=== PATIENT | male | born 1940 | race Caucasian/White ===

== ENCOUNTER 2017-03-05 13:40 | Inpatient (IN) | payer MEDICARE ==
[~2017-03-05] VITALS: Ht 175.3 cm; Wt 79.8 kg
[~2017-03-05 13:40] MED LIST: ACET500T63 PO; ACID1TAB7 PO; ASPI-621 PO; ATOR10TA9 PO; CEFD300C37 PO; CYCL-259 PO; DOCU-131 PO; FAMO20TA7 PO; LISI-167 PO; LISI-170 PO
[2017-03-05 14:54] LABS: BASOPHILS # (AUTO) 0.02 x10^3/uL (0-0.1); BASOPHILS % (AUTO) 0 % (0-1); EOSINOPHILS # (AUTO) 0.07 x10^3/uL (0-0.4); EOSINOPHILS % (AUTO) 1 % (1-7); LYMPHOCYTES % (AUTO) 17 % (22-44); MD NO; MEAN CORPUSCULAR HEMOGLOBIN 30.7 pg (27.5-34.5); MEAN CORPUSCULAR HGB CONC 33.2 g/dL (33.2-36.2); MEAN CORPUSCULAR VOLUME 92.4 fL (81-97); MEAN PLATELET VOLUME 8.8 fL (7.4-10.4); MONOCYTES # (AUTO) 0.42 x10^3/uL (0.2-0.8); MONOCYTES % (AUTO) 7 % (2-9); NEUTROPHILS # (AUTO) 4.49 x10^3/uL (1.8-6.8); NEUTROPHILS % (AUTO) 75 % (42-75); PLATELET COUNT 194 x10^3/uL (130-400); RED CELL DISTRIBUTION WIDTH 14.1 % (9.4-14.8)
[2017-03-05 14:57] LABS: ALBUMIN 3.6 g/dL (3.4-5.0); ANION GAP 6 mmol/L (5-15); CALCIUM 8.7 mg/dL (8.5-10.1); CHLORIDE 108 mmol/L (98-107); CREATININE 0.97 mg/dL (0.7-1.3)
[2017-03-05 15:02] LABS: TROPONIN I < 0.015 ng/mL (0.000-0.045)
[2017-03-05 15:39] LABS: MICROSCOPIC NOT IND
[2017-03-05 16:21] LABS: CULTURE INDICATED? NO
[2017-03-05] MEDS ORDERED: LEVETIRACETAM 100 MG/ML, 5ML IV ONE (16:30)
[2017-03-05] MEDS ORDERED: DEXAMETHASONE 4 MG/ML, 1ML IVPush SCH (16:30)
[2017-03-05] MEDS ORDERED: GADOBUTROL 7.5 MMOL/7.5 ML PFS ONE (16:53)
[2017-03-05] MEDS ORDERED: DEXAMETHASONE 4 MG/ML, 1ML ONE (16:53)
[2017-03-05] MEDS ORDERED: PLEASE ENTER HEIGHT AND WEIGHT MC SCH (17:09)
[2017-03-05] MEDS ORDERED: BISACODYL 10 MG SUPP PR PRN (18:00)
[2017-03-05] MEDS ORDERED: DOCUSATE 100 MG CAPSULE PO PRN (18:00)
[2017-03-05] MEDS ORDERED: ACETAMINOPHEN 325 MG TABLET PO PRN (18:00)
[2017-03-05] MEDS ORDERED: morphine SULFATE 10 MG/ML, 1ML IVPush PRN (18:00)
[2017-03-05] MEDS ORDERED: LEVETIRACETAM 500 MG in SODIUM CHLORIDE 0.9% 100 ML IV ONE (18:00)
[2017-03-05] MEDS ORDERED: LORazepam 0.5MG TABLET PO PRN (18:00)
[2017-03-05] MEDS ORDERED: OMNIPAQUE 350 MG/ML, 100ML BOTTLE ONE (18:00)
[2017-03-05] MEDS ORDERED: ONDANSETRON 2MG/ML, 2ML IVPush PRN (18:00)
[2017-03-05] MEDS ORDERED: HYDROcodone/APAP 5/325 TABLET PO PRN (18:00)
[2017-03-05] MEDS: DEXAMETHASONE 4 MG/ML, 1ML IVPush SCH (18:28)
[2017-03-05 19:23] VITALS: BP 162/82
[2017-03-05] MEDS: ATORVASTATIN 10 MG TABLET PO SCH (21:03)
[2017-03-05] MEDS: FAMOTIDINE 20 MG TABLET PO SCH (21:03)
[2017-03-05] MEDS: SODIUM CHLORIDE FLUSH 10ML SYR IVF SCH (21:04)
[2017-03-06] MEDS: DEXAMETHASONE 4 MG/ML, 1ML IVPush SCH ×4 (00:12→18:13)
[2017-03-06] MEDS: LEVETIRACETAM 500 MG TABLET PO SCH ×3 (00:13→21:12)
[2017-03-06] MEDS: TEMAZEPAM 15 MG CAPSULE PO PRN ×2 (00:26→21:12)
[2017-03-06 01:38] VITALS: BP 125/63
[2017-03-06 04:42] LABS: BASOPHILS # (AUTO) 0.01 x10^3/uL (0-0.1); BASOPHILS % (AUTO) 0 % (0-1); EOSINOPHILS % (AUTO) 0 % (1-7); LYMPHOCYTES # (AUTO) 0.49 x10^3/uL (1-3.4); LYMPHOCYTES % (AUTO) 8 % (22-44); MD NO; MEAN CORPUSCULAR HGB CONC 33.8 g/dL (33.2-36.2); MEAN CORPUSCULAR VOLUME 91.8 fL (81-97); MONOCYTES # (AUTO) 0.07 x10^3/uL (0.2-0.8); MONOCYTES % (AUTO) 1 % (2-9); NEUTROPHILS # (AUTO) 5.97 x10^3/uL (1.8-6.8); NEUTROPHILS % (AUTO) 91 % (42-75); PLATELET COUNT 183 x10^3/uL (130-400); RED BLOOD COUNT 4.69 x10^6/uL (4.38-5.82); RED CELL DISTRIBUTION WIDTH 13.8 % (9.4-14.8)
[2017-03-06 04:47] LABS: ALANINE AMINOTRANSFERASE 22 U/L (12-78); ALBUMIN 3.2 g/dL (3.4-5.0); ANION GAP 8 mmol/L (5-15); CALCIUM 8.5 mg/dL (8.5-10.1); CHLORIDE 110 mmol/L (98-107); CREATININE 0.92 mg/dL (0.7-1.3)
[2017-03-06 04:50] LABS: ALKALINE PHOSPHATASE 68 U/L (45-117); BILIRUBIN,TOTAL 0.6 mg/dL (0.2-1.0); TOTAL PROTEIN 7.1 g/dL (6.4-8.2)
[2017-03-06 07:50] VITALS: BP 136/77
[2017-03-06] MEDS: FAMOTIDINE 20 MG TABLET PO SCH ×2 (09:29→21:12)
[2017-03-06] MEDS: SODIUM CHLORIDE FLUSH 10ML SYR IVF SCH (09:29)
[2017-03-06 09:32] LABS: INTERNATIONAL NORMALIZED RATIO 0.99 (0.93-1.1); PROTHROMBIN TIME 10.3 Seconds (9.6-11.5)
[2017-03-06 13:28] VITALS: BP 120/65
[2017-03-06 20:39] VITALS: BP 144/76
[2017-03-06] MEDS: ATORVASTATIN 10 MG TABLET PO SCH (21:12)
[2017-03-07] MEDS: SODIUM CHLORIDE FLUSH 10ML SYR IVF SCH ×2 (00:05→07:48)
[2017-03-07] MEDS: DEXAMETHASONE 4 MG/ML, 1ML IVPush SCH ×2 (00:05→05:28)
[2017-03-07 02:31] VITALS: BP 138/71
[2017-03-07] MEDS: FAMOTIDINE 20 MG TABLET PO SCH (07:48)
[2017-03-07] MEDS: LEVETIRACETAM 500 MG TABLET PO SCH (07:48)
[2017-03-07 07:49] VITALS: BP 154/83
[2017-03-07] MEDS ORDERED: FAMO20TA7 PO (10:57)
[2017-03-07] MEDS ORDERED: LEVE500T53 PO (10:57)
[2017-03-07] MEDS ORDERED: DEXA4TAB PO (10:58)
[2017-03-07] MEDS ORDERED: ACET325T14 PO (11:00)
[2017-03-07] MEDS ORDERED: DOCU-131 PO (11:00)
[2017-03-07] MEDS ORDERED: LISI-167 PO (11:08)
[2017-03-07] MEDS ORDERED: LISINOPRIL 10 MG TABLET PO SCH (11:30)
[2017-03-07] MEDS ORDERED: DEXAMETHASONE 4 MG TABLET PO SCH (15:00)
== END 2017-03-07 12:11 | disposition home or self-care (01) | DRG 97 ==
LOC: ED 16:02 → EDIP 16:03 → ED 16:28 → 3NW 17:49 → DCLOUNGE 03-07 12:02
PROVIDERS: ADMIT Hospitalist; ATTEND Hospitalist
DX: B58.2 Toxoplasma meningoencephalitis (principal); G93.6 Cerebral edema; E44.0 Moderate protein-calorie malnutrition; D49.6 Neoplasm of unspecified behavior of brain; C61 Malignant neoplasm of prostate; D17.30 Benign lipomatous neoplasm of skin and subcutaneous tissue of unspecified sites; Z68.26 Body mass index [BMI] 26.0-26.9, adult; E78.5 Hyperlipidemia, unspecified; M51.37 Other intervertebral disc degeneration, lumbosacral region; I10 Essential (primary) hypertension; Z79.899 Other long term (current) drug therapy; Z85.46 Personal history of malignant neoplasm of prostate; Z87.440 Personal history of urinary (tract) infections; Z87.442 Personal history of urinary calculi; Z87.891 Personal history of nicotine dependence; Z92.3 Personal history of irradiation
CPT/HCPCS: 36415; 70450; 70553; 71046; 71260; 74177; 80048; 80053; 81003; 82040; 84484; 85025; 85610; 93005; 99291; A9585; J1100; J1953; Q9967

== ENCOUNTER 2017-03-14 07:23 | Inpatient (IN) | payer MEDICARE ==
[~2017-03-14] VITALS: Ht 175.3 cm; Wt 80.8 kg
[~2017-03-14 07:23] MED LIST changes: -ACETAMINOPHEN 650 MG/20.3 ML UDC ONE; +BACITRACIN 50,000 UNIT ONE; +BUPIVACAINE/PF 0.5% ONE; -DEXA2TAB PO; -DOCU100T3 PO; +EPINEPHRINE 1 MG/ML, 1ML ONE; -FAMO-79 PO; -HYDR-3240 PO; -LABETALOL 5MG/ML, 20ML ONE; +MANNITOL PMX 20% 500 ML ONE; -OXYcodone 5 MG/5 ML ORAL.SOL UDC ONE; +THROMBIN 5,000 UNIT VIAL TP ONE; -hydrALAzine 20 MG/ML, 1ML ONE
[2017-03-14] MEDS ORDERED: LACTATED RINGERS 1,000 ML IV SCH (07:51)
[2017-03-14] MEDS ORDERED: REMIFENTANIL 2 MG ONE (08:36)
[2017-03-14] MEDS ORDERED: MIDAZOLAM 1 MG/ML, 2ML ONE (08:36)
[2017-03-14] MEDS ORDERED: FENTANYL PF 250 MCG/5ML ONE (08:36)
[2017-03-14] MEDS ORDERED: PROPOFOL 50 ML ONE (08:37)
[2017-03-14] MEDS ORDERED: PROPOFOL 10 MG/ML, 20ML ONE (09:33)
[2017-03-14] MEDS ORDERED: ROCURONIUM 10 MG/ML,10ML ONE (09:33)
[2017-03-14] MEDS ORDERED: DEXAMETHASONE 4 MG/ML, 1ML ONE (09:33)
[2017-03-14] MEDS ORDERED: SUCCINYLCHOLINE 20 MG/ML, 10ML ONE (09:33)
[2017-03-14] MEDS ORDERED: ONDANSETRON 2MG/ML, 2ML ONE (09:33)
[2017-03-14] MEDS ORDERED: EPHEDRINE 50 MG/ML, 1ML ONE (09:33)
[2017-03-14] MEDS ORDERED: GADOBUTROL 10 MMOL/10 ML PFS ONE (09:33)
[2017-03-14] MEDS ORDERED: NALOXONE 0.4 MG/ML, 1ML ONE (09:34)
[2017-03-14] MEDS ORDERED: ACETAMINOPHEN 325 MG TABLET PO PRN (11:00)
[2017-03-14] MEDS ORDERED: PROMETHAZINE 25 MG/ML, 1ML IV PRN (11:00)
[2017-03-14] MEDS ORDERED: OXYcodone 5 MG/5 ML ORAL.SOL UDC PO PRN (11:00)
[2017-03-14] MEDS ORDERED: MEPERIDINE/PF 25MG/0.5ML IVPush PRN (11:00)
[2017-03-14] MEDS ORDERED: FENTANYL PF 100 MCG/2ML IV PRN (11:00)
[2017-03-14] MEDS ORDERED: HYDROcodone/APAP 7.5-325MG/15ML UDC PO PRN (11:00)
[2017-03-14] MEDS ORDERED: ONDANSETRON 2MG/ML, 2ML IVPush PRN (11:00)
[2017-03-14] MEDS ORDERED: HYDROmorphone 1 MG/ML, 1ML IV PRN (11:00)
[2017-03-14] MEDS ORDERED: FENTANYL PF 100 MCG/2ML ONE (12:36)
[2017-03-14] MEDS: hydrALAzine 20 MG/ML, 1ML IV PRN ×2 (13:10→13:31)
[2017-03-14] MEDS: LABETALOL 5MG/ML, 20ML IV PRN ×3 (13:28→13:43)
[2017-03-14] MEDS ORDERED: LABETALOL 250 MG in DEXTROSE 5% 200 ML IV PRN (14:30)
[2017-03-14] MEDS ORDERED: NITROPRUSSIDE 50 MG in DEXTROSE 5% 248 ML IV PRN (14:30)
[2017-03-14] MEDS ORDERED: DIPHENHYDRAMINE 50 MG/ML, 1ML IV PRN (14:30)
[2017-03-14] MEDS ORDERED: DIPHENHYDRAMINE 50 MG/ML, 1ML IM PRN (14:30)
[2017-03-14] MEDS ORDERED: OXYcodone/APAP 5/325MG TABLET PO PRN (14:30)
[2017-03-14] MEDS: NS + 20MEQ KCL 1,000 ML IV SCH (15:07)
[2017-03-14] MEDS: DEXAMETHASONE 4 MG/ML, 1ML IV SCH ×2 (15:15→20:58)
[2017-03-14] MEDS: CEFUROXIME 1.5 GM in SODIUM CHLORIDE 0.9% 50 ML IVPB SCH (18:19)
[2017-03-14] MEDS: HYDROcodone/APAP 5/325 TABLET PO PRN (18:31)
[2017-03-14] MEDS: LEVETIRACETAM 500 MG TABLET PO SCH (20:58)
[2017-03-14] MEDS: FAMOTIDINE 20 MG TABLET PO SCH (20:58)
[2017-03-14] MEDS: DOCUSATE 100 MG CAPSULE PO SCH (20:58)
[2017-03-15] MEDS: DEXAMETHASONE 4 MG/ML, 1ML IV SCH ×4 (01:58→21:57)
[2017-03-15] MEDS: CEFUROXIME 1.5 GM in SODIUM CHLORIDE 0.9% 50 ML IVPB SCH (01:59)
[2017-03-15 05:25] LABS: BASOPHILS # (AUTO) 0.01 x10^3/uL (0-0.1); BASOPHILS % (AUTO) 0 % (0-1); EOSINOPHILS # (AUTO) 0.01 x10^3/uL (0-0.4); EOSINOPHILS % (AUTO) 0 % (1-7); LYMPHOCYTES # (AUTO) 0.39 x10^3/uL (1-3.4); LYMPHOCYTES % (AUTO) 3 % (22-44); MD NO; MEAN CORPUSCULAR HEMOGLOBIN 30.5 pg (27.5-34.5); MEAN CORPUSCULAR HGB CONC 33.1 g/dL (33.2-36.2); MEAN CORPUSCULAR VOLUME 92.3 fL (81-97); MEAN PLATELET VOLUME 8.4 fL (7.4-10.4); MONOCYTES # (AUTO) 0.99 x10^3/uL (0.2-0.8); MONOCYTES % (AUTO) 7 % (2-9); NEUTROPHILS # (AUTO) 12.42 x10^3/uL (1.8-6.8); NEUTROPHILS % (AUTO) 90 % (42-75); PLATELET COUNT 220 x10^3/uL (130-400); RED BLOOD COUNT 4.44 x10^6/uL (4.38-5.82); RED CELL DISTRIBUTION WIDTH 14.6 % (9.4-14.8)
[2017-03-15 05:40] LABS: CHLORIDE 111 mmol/L (98-107)
[2017-03-15 05:47] LABS: ANION GAP 9 mmol/L (5-15); CALCIUM 7.9 mg/dL (8.5-10.1); CREATININE 0.65 mg/dL (0.7-1.3)
[2017-03-15] MEDS: NS + 20MEQ KCL 1,000 ML IV SCH (06:25)
[2017-03-15] MEDS: SENNA/DOCUSATE TABLET PO SCH (09:00)
[2017-03-15] MEDS: DOCUSATE 100 MG CAPSULE PO SCH ×2 (10:01→20:55)
[2017-03-15] MEDS: LISINOPRIL 10 MG TABLET PO SCH (10:02)
[2017-03-15] MEDS: FAMOTIDINE 20 MG TABLET PO SCH ×2 (10:02→20:55)
[2017-03-15] MEDS: LEVETIRACETAM 500 MG TABLET PO SCH ×2 (10:02→20:55)
[2017-03-15] MEDS: HYDROcodone/APAP 5/325 TABLET PO PRN ×2 (13:53→22:49)
[2017-03-15] MEDS ORDERED: NITROPRUSSIDE 50 MG in DEXTROSE 5% 248 ML IV PRN (14:30)
[2017-03-15] MEDS ORDERED: LABETALOL 250 MG in DEXTROSE 5% 200 ML IV PRN (14:30)
[2017-03-15 19:00] VITALS: BP 120/57
[2017-03-15 23:38] VITALS: BP 115/65
[2017-03-16] MEDS: DEXAMETHASONE 4 MG/ML, 1ML IV SCH ×4 (03:59→20:36)
[2017-03-16 04:05] VITALS: BP 129/70
[2017-03-16 06:55] VITALS: BP 150/77
[2017-03-16] MEDS: LEVETIRACETAM 500 MG TABLET PO SCH ×2 (08:11→20:36)
[2017-03-16] MEDS: FAMOTIDINE 20 MG TABLET PO SCH ×2 (08:11→20:36)
[2017-03-16] MEDS: LISINOPRIL 10 MG TABLET PO SCH (08:11)
[2017-03-16] MEDS: DOCUSATE 100 MG CAPSULE PO SCH ×2 (08:11→20:36)
[2017-03-16] MEDS: SENNA/DOCUSATE TABLET PO SCH (08:12)
[2017-03-16] MEDS ORDERED: ACETAMINOPHEN 325 MG TABLET PO PRN (09:00)
[2017-03-16] MEDS ORDERED: HYDR-3240 PO (09:02)
[2017-03-16 13:05] VITALS: BP 147/74
[2017-03-16 19:53] VITALS: BP 125/68
[2017-03-17 01:03] VITALS: BP 162/76
[2017-03-17] MEDS ORDERED: DEXA2TAB PO ×4 (01:28→01:33)
[2017-03-17] MEDS ORDERED: FAMO-79 PO (01:34)
[2017-03-17] MEDS ORDERED: DOCU100T3 PO (01:36)
[2017-03-17 03:33] VITALS: BP 147/81
[2017-03-17 05:05] LABS: BASOPHILS # (AUTO) 0.03 x10^3/uL (0-0.1); BASOPHILS % (AUTO) 0 % (0-1); EOSINOPHILS % (AUTO) 0 % (1-7); LYMPHOCYTES # (AUTO) 0.88 x10^3/uL (1-3.4); LYMPHOCYTES % (AUTO) 8 % (22-44); MD NO; MEAN CORPUSCULAR HEMOGLOBIN 31.1 pg (27.5-34.5); MEAN CORPUSCULAR HGB CONC 33.4 g/dL (33.2-36.2); MEAN CORPUSCULAR VOLUME 93.2 fL (81-97); MEAN PLATELET VOLUME 8.9 fL (7.4-10.4); MONOCYTES % (AUTO) 8 % (2-9); NEUTROPHILS # (AUTO) 9.63 x10^3/uL (1.8-6.8); NEUTROPHILS % (AUTO) 84 % (42-75); PLATELET COUNT 195 x10^3/uL (130-400); RED BLOOD COUNT 4.08 x10^6/uL (4.38-5.82); RED CELL DISTRIBUTION WIDTH 14.7 % (9.4-14.8)
[2017-03-17 06:46] VITALS: BP 171/71
[2017-03-17] MEDS: DEXAMETHASONE 4 MG/ML, 1ML IV SCH (09:26)
[2017-03-17] MEDS: LEVETIRACETAM 500 MG TABLET PO SCH (09:27)
[2017-03-17] MEDS: LISINOPRIL 10 MG TABLET PO SCH (09:27)
[2017-03-17] MEDS: SENNA/DOCUSATE TABLET PO SCH (09:27)
[2017-03-17] MEDS: FAMOTIDINE 20 MG TABLET PO SCH (09:27)
[2017-03-17] MEDS: DOCUSATE 100 MG CAPSULE PO SCH (09:27)
[2017-03-17 13:28] VITALS: BP 135/69
== END 2017-03-17 15:57 | disposition home health service (06) | DRG 25 ==
LOC: ORIP 07:23 → CCU 14:11 → 3NW 03-15 12:07
PROVIDERS: ADMIT Neurological Surgery; ATTEND Neurological Surgery
PROC: 00B00ZZ Excision of Brain, Open Approach (ICD-10-PCS; principal; 2017-03-14 11:30)
DX: C71.4 Malignant neoplasm of occipital lobe (principal); G93.6 Cerebral edema; G93.89 Other specified disorders of brain; E78.5 Hyperlipidemia, unspecified; I10 Essential (primary) hypertension; E78.00 Pure hypercholesterolemia, unspecified; C71.8 Malignant neoplasm of overlapping sites of brain; Z92.3 Personal history of irradiation; Z87.891 Personal history of nicotine dependence; Z85.46 Personal history of malignant neoplasm of prostate; Z00.6 Encounter for examination for normal comparison and control in clinical research program; Z87.440 Personal history of urinary (tract) infections
CPT/HCPCS: 36415; 70450; 70553; 80048; 85025; 87081; 88307; 88331; A9585; C1713; J0171; J0697; J1100; J2250; J2310; J2405; J2704; J3010; J3480; J3490; 92523-GN; A4648; C1781; J0330; J0360; J1200; J7120

== ENCOUNTER → 2017-03-14 | Outpatient (CLI) | payer MEDICARE ==
[~2017-03-14] MED LIST changes: +ACET325T14 PO; +ACETAMINOPHEN 650 MG/20.3 ML UDC ONE; +DEXA2TAB PO; +DEXA4TAB PO; +DOCU100T3 PO; +FAMO-79 PO; +HYDR-3240 PO; +LABETALOL 5MG/ML, 20ML ONE; +LEVE500T53 PO; +OXYcodone 5 MG/5 ML ORAL.SOL UDC ONE; +hydrALAzine 20 MG/ML, 1ML ONE
== END | disposition home or self-care (01) ==
LOC: RAD 13:30
PROVIDERS: ATTEND Neurological Surgery
DX: Z02.9 Encounter for administrative examinations, unspecified (principal)
CPT/HCPCS: 70553; 81120; 81121

== ENCOUNTER → 2017-08-23 | Outpatient (CLI) | payer MEDICARE ==
[~2017-08-23] MED LIST changes: -BACITRACIN 50,000 UNIT ONE; -BUPIVACAINE/PF 0.5% ONE; +DEXA2TAB PO; +DOCU100T3 PO; -EPINEPHRINE 1 MG/ML, 1ML ONE; +FAMO-79 PO; +GADOBUTROL 7.5 MMOL/7.5 ML VIAL ONE; +HYDR-3240 PO; -MANNITOL PMX 20% 500 ML ONE; -THROMBIN 5,000 UNIT VIAL TP ONE
== END | disposition home or self-care (01) ==
LOC: CFH 13:02
PROVIDERS: ATTEND Specialist
DX: C71.8 Malignant neoplasm of overlapping sites of brain (principal); C61 Malignant neoplasm of prostate
CPT/HCPCS: 70553; A9585

== ENCOUNTER 2017-09-19 15:31 | Inpatient (IN) | payer MEDICARE ==
[~2017-09-19] VITALS: Ht 175.3 cm; Wt 73.6 kg
[~2017-09-19 15:31] MED LIST changes: -GADOBUTROL 7.5 MMOL/7.5 ML VIAL ONE
[2017-09-19] MEDS ORDERED: ACETAMINOPHEN 500 MG TABLET ONE (16:25)
[2017-09-19] MEDS ORDERED: SODIUM CHLORIDE FLUSH 10ML SYR IVF ONE (16:30)
[2017-09-19] MEDS ORDERED: ACETAMINOPHEN 500 MG TABLET PO ONE (16:30)
[2017-09-19] MEDS: SODIUM CHLORIDE 0.9% 1,000ML IVBOLUS ONE ×2 (16:47→18:46)
[2017-09-19 16:53] LABS: BASOPHILS # (AUTO) 0.03 x10^3/uL (0-0.1); BASOPHILS % (AUTO) 0 % (0-1); EOSINOPHILS # (AUTO) 0.02 x10^3/uL (0-0.4); EOSINOPHILS % (AUTO) 0 % (1-7); LYMPHOCYTES # (AUTO) 0.39 x10^3/uL (1-3.4); LYMPHOCYTES % (AUTO) 5 % (22-44); MD NO; MEAN CORPUSCULAR HEMOGLOBIN 32.3 pg (27.5-34.5); MEAN CORPUSCULAR VOLUME 94.9 fL (81-97); MONOCYTES # (AUTO) 0.39 x10^3/uL (0.2-0.8); MONOCYTES % (AUTO) 5 % (2-9); NEUTROPHILS # (AUTO) 6.76 x10^3/uL (1.8-6.8); NEUTROPHILS % (AUTO) 89 % (42-75); PLATELET COUNT 182 x10^3/uL (130-400); RED BLOOD COUNT 4.63 x10^6/uL (4.38-5.82)
[2017-09-19 16:54] LABS: ANION GAP 7 mmol/L (5-15); CALCIUM 8.5 mg/dL (8.5-10.1); CHLORIDE 100 mmol/L (98-107); CREATININE 0.95 mg/dL (0.7-1.3); INTERNATIONAL NORMALIZED RATIO 0.97 (0.93-1.1)
[2017-09-19 16:55] LABS: ALANINE AMINOTRANSFERASE 24 U/L (12-78); ALBUMIN 3.4 g/dL (3.4-5.0)
[2017-09-19 16:57] LABS: ALKALINE PHOSPHATASE 79 U/L (45-117); TOTAL PROTEIN 7.9 g/dL (6.4-8.2)
[2017-09-19 18:00] LABS: MICROSCOPIC AUTO
[2017-09-19 18:01] LABS: CULTURE INDICATED? NO
[2017-09-19] MEDS ORDERED: MULT-516 PO (18:52)
[2017-09-19 19:13] VITALS: BP 156/67
[2017-09-19] MEDS ORDERED: BISACODYL 10 MG SUPP PR PRN (21:00)
[2017-09-19] MEDS ORDERED: CEFTRIAXONE 1,000 MG IM ONE (21:00)
[2017-09-19] MEDS ORDERED: POLYETHYLENE GLYCOL 17 GM PACKET PO PRN (21:00)
[2017-09-19] MEDS ORDERED: TEMAZEPAM 15 MG CAPSULE PO PRN (21:00)
[2017-09-19] MEDS ORDERED: CEFTRIAXONE 1,000 MG in SODIUM CHLORIDE 0.9% 50 ML IVPB ONE (21:30)
[2017-09-19] MEDS ORDERED: VANCOMYCIN PMX 1GM/200ML 200 ML IV ONE (21:30)
[2017-09-19] MEDS: SODIUM CHLORIDE 0.9% 1,000 ML IV SCH (22:46)
[2017-09-20 01:14] VITALS: BP 135/57
[2017-09-20] MEDS: ACETAMINOPHEN 325 MG TABLET PO PRN ×3 (02:21→16:11)
[2017-09-20 04:41] LABS: BASOPHILS # (AUTO) 0.01 x10^3/uL (0-0.1); BASOPHILS % (AUTO) 0 % (0-1); EOSINOPHILS % (AUTO) 0 % (1-7); LYMPHOCYTES # (AUTO) 0.29 x10^3/uL (1-3.4); LYMPHOCYTES % (AUTO) 5 % (22-44); MD NO; MEAN CORPUSCULAR HEMOGLOBIN 32.5 pg (27.5-34.5); MEAN CORPUSCULAR HGB CONC 34.2 g/dL (33.2-36.2); MEAN PLATELET VOLUME 7.9 fL (7.4-10.4); MONOCYTES # (AUTO) 0.41 x10^3/uL (0.2-0.8); MONOCYTES % (AUTO) 7 % (2-9); NEUTROPHILS # (AUTO) 5.12 x10^3/uL (1.8-6.8); NEUTROPHILS % (AUTO) 88 % (42-75); PLATELET COUNT 156 x10^3/uL (130-400); RED BLOOD COUNT 4.02 x10^6/uL (4.38-5.82); RED CELL DISTRIBUTION WIDTH 14.5 % (9.4-14.8)
[2017-09-20 04:52] LABS: ANION GAP 8 mmol/L (5-15); CHLORIDE 108 mmol/L (98-107)
[2017-09-20 04:54] LABS: CREATININE 0.88 mg/dL (0.7-1.3)
[2017-09-20 07:31] VITALS: BP 138/69
[2017-09-20] MEDS ORDERED: GADOBUTROL 7.5 MMOL/7.5 ML PFS ONE (08:17)
[2017-09-20] MEDS: SODIUM CHLORIDE 0.9% 1,000 ML IV SCH (10:21)
[2017-09-20 14:52] VITALS: BP 143/61
[2017-09-20] MEDS ORDERED: VANCOMYCIN PER PHARMACY MC PRN (19:00)
[2017-09-20] MEDS ORDERED: CEFTRIAXONE 2 GM in SODIUM CHLORIDE 0.9% 50 ML IV SCH (19:00)
[2017-09-20 19:10] VITALS: BP 144/63
[2017-09-20] MEDS ORDERED: PHARMACOKINETIC MONITORING MC PRN (19:30)
[2017-09-20] MEDS ORDERED: PHARMACOKINETIC CONSULTATION MC ONE (19:30)
[2017-09-20] MEDS ORDERED: LIDOCAINE-MPF 1%, 2ML ONE (20:00)
[2017-09-20 21:12] LABS: GLUCOSE, CSF 40 mg/dL (40-80); TOTAL PROTEIN,CSF 125 mg/dL (15-45)
[2017-09-20] MEDS: HYDROcodone/APAP 5/325 TABLET PO PRN ×2 (21:25→22:18)
[2017-09-20] MEDS: VANCOMYCIN 1,500 MG in SODIUM CHLORIDE 0.9% 250 ML IV SCH (21:26)
[2017-09-21 00:33] VITALS: BP 130/72
[2017-09-21 02:58] VITALS: BP 133/62
[2017-09-21 06:33] VITALS: BP 134/79
[2017-09-21] MEDS: HYDROcodone/APAP 5/325 TABLET PO PRN ×2 (07:35→20:17)
[2017-09-21] MEDS: KETOROLAC 30 MG/1 ML IVPush PRN ×2 (11:30→18:36)
[2017-09-21 14:50] VITALS: BP 163/78
[2017-09-21] MEDS: MEROPENEM 1 GM in SODIUM CHLORIDE 0.9% 100 ML IV SCH (15:16)
[2017-09-21 15:29] VITALS: BP 157/76
[2017-09-21 17:13] LABS: HCT (SEDRATE) 38.1 % (39.2-51.8)
[2017-09-21 19:44] VITALS: BP 146/64
[2017-09-21] MEDS: VANCOMYCIN 1,500 MG in SODIUM CHLORIDE 0.9% 250 ML IV SCH (22:37)
[2017-09-22] MEDS: MEROPENEM 1 GM in SODIUM CHLORIDE 0.9% 100 ML IV SCH ×3 (00:33→16:46)
[2017-09-22 00:40] VITALS: BP 150/73
[2017-09-22] MEDS: KETOROLAC 30 MG/1 ML IVPush PRN ×3 (02:44→22:36)
[2017-09-22 07:49] VITALS: BP 175/79
[2017-09-22] MEDS: HYDROcodone/APAP 5/325 TABLET PO PRN (08:17)
[2017-09-22] MEDS: ENALAPRILAT 1.25 MG/ML, 2ML IV PRN (08:19)
[2017-09-22 14:24] VITALS: BP 143/63
[2017-09-22 19:44] VITALS: BP 129/75
[2017-09-22] MEDS: VANCOMYCIN 1,500 MG in SODIUM CHLORIDE 0.9% 250 ML IV SCH (22:36)
[2017-09-23] MEDS: MEROPENEM 1 GM in SODIUM CHLORIDE 0.9% 100 ML IV SCH ×3 (00:25→16:32)
[2017-09-23 01:36] VITALS: BP 109/56
[2017-09-23] MEDS: KETOROLAC 30 MG/1 ML IVPush PRN (05:04)
[2017-09-23 08:08] VITALS: BP 154/76
[2017-09-23 12:58] VITALS: BP 150/65
[2017-09-23] MEDS: HYDROcodone/APAP 5/325 TABLET PO PRN ×2 (14:49→20:04)
[2017-09-23 19:02] VITALS: BP 163/74
[2017-09-23] MEDS: ENALAPRILAT 1.25 MG/ML, 2ML IV PRN (20:04)
[2017-09-23 21:16] VITALS: BP 169/80
[2017-09-23 22:02] VITALS: BP 156/71
[2017-09-24] MEDS: MEROPENEM 1 GM in SODIUM CHLORIDE 0.9% 100 ML IV SCH ×3 (00:06→16:17)
[2017-09-24 00:58] VITALS: BP 156/78
[2017-09-24 04:55] LABS: HCT (SEDRATE) 36.5 % (39.2-51.8)
[2017-09-24 05:03] LABS: BASOPHILS # (AUTO) 0.04 x10^3/uL (0-0.1); BASOPHILS % (AUTO) 1 % (0-1); EOSINOPHILS # (AUTO) 0.17 x10^3/uL (0-0.4); EOSINOPHILS % (AUTO) 4 % (1-7); LYMPHOCYTES # (AUTO) 0.53 x10^3/uL (1-3.4); LYMPHOCYTES % (AUTO) 13 % (22-44); MD NO; MEAN CORPUSCULAR HEMOGLOBIN 31.9 pg (27.5-34.5); MEAN CORPUSCULAR HGB CONC 33.7 g/dL (33.2-36.2); MEAN CORPUSCULAR VOLUME 94.7 fL (81-97); MEAN PLATELET VOLUME 7.6 fL (7.4-10.4); MONOCYTES % (AUTO) 7 % (2-9); NEUTROPHILS # (AUTO) 3.07 x10^3/uL (1.8-6.8); NEUTROPHILS % (AUTO) 75 % (42-75); PLATELET COUNT 217 x10^3/uL (130-400); RED BLOOD COUNT 3.85 x10^6/uL (4.38-5.82); RED CELL DISTRIBUTION WIDTH 14.3 % (9.4-14.8)
[2017-09-24 05:10] LABS: ALBUMIN 2.5 g/dL (3.4-5.0); ANION GAP 6 mmol/L (5-15); CALCIUM 7.9 mg/dL (8.5-10.1); CHLORIDE 111 mmol/L (98-107)
[2017-09-24 05:18] LABS: ALANINE AMINOTRANSFERASE 16 U/L (12-78); ALKALINE PHOSPHATASE 60 U/L (45-117); BILIRUBIN,TOTAL 0.5 mg/dL (0.2-1.0); CREATININE 0.79 mg/dL (0.7-1.3); TOTAL PROTEIN 6.1 g/dL (6.4-8.2)
[2017-09-24 07:13] VITALS: BP 163/75
[2017-09-24] MEDS: ENALAPRILAT 1.25 MG/ML, 2ML IV PRN (08:42)
[2017-09-24 10:51] VITALS: BP 158/72
[2017-09-24 12:48] VITALS: BP 120/2
[2017-09-24] MEDS: ACETAMINOPHEN 325 MG TABLET PO PRN (14:12)
[2017-09-24 19:46] VITALS: BP 145/73
[2017-09-25] MEDS: MEROPENEM 1 GM in SODIUM CHLORIDE 0.9% 100 ML IV SCH ×3 (00:08→15:34)
[2017-09-25 00:29] VITALS: BP 157/79
[2017-09-25 05:02] LABS: BASOPHILS # (AUTO) 0.03 x10^3/uL (0-0.1); BASOPHILS % (AUTO) 1 % (0-1); EOSINOPHILS # (AUTO) 0.11 x10^3/uL (0-0.4); EOSINOPHILS % (AUTO) 2 % (1-7); LYMPHOCYTES % (AUTO) 13 % (22-44); MD NO; MEAN CORPUSCULAR HEMOGLOBIN 32.3 pg (27.5-34.5); MEAN CORPUSCULAR HGB CONC 34.2 g/dL (33.2-36.2); MEAN CORPUSCULAR VOLUME 94.7 fL (81-97); MEAN PLATELET VOLUME 7.6 fL (7.4-10.4); MONOCYTES % (AUTO) 6 % (2-9); NEUTROPHILS # (AUTO) 3.62 x10^3/uL (1.8-6.8); NEUTROPHILS % (AUTO) 78 % (42-75); PLATELET COUNT 250 x10^3/uL (130-400); RED BLOOD COUNT 3.84 x10^6/uL (4.38-5.82); RED CELL DISTRIBUTION WIDTH 14.2 % (9.4-14.8)
[2017-09-25 05:11] LABS: ANION GAP 7 mmol/L (5-15); CHLORIDE 112 mmol/L (98-107); CREATININE 0.82 mg/dL (0.7-1.3)
[2017-09-25 08:01] VITALS: BP 149/75
[2017-09-25 13:03] VITALS: BP 169/80
[2017-09-25 18:33] VITALS: BP 160/72
[2017-09-26] VITALS (9 sets, daily range): BP systolic 153–173; BP diastolic 77–88
[2017-09-26] MEDS: MEROPENEM 1 GM in SODIUM CHLORIDE 0.9% 100 ML IV SCH ×3 (00:11→17:22)
[2017-09-26] MEDS: ENALAPRILAT 1.25 MG/ML, 2ML IV PRN ×2 (03:19→16:24)
[2017-09-26] MEDS: METOPROLOL TARTRATE 25 MG TABLET PO SCH ×2 (07:46→22:30)
[2017-09-26] MEDS ORDERED: LISINOPRIL 20 MG TABLET ONE (13:44)
[2017-09-26] MEDS: LISINOPRIL 20 MG TABLET PO SCH ×2 (13:54→22:31)
[2017-09-27 00:11] VITALS: BP 158/72
[2017-09-27] MEDS: MEROPENEM 1 GM in SODIUM CHLORIDE 0.9% 100 ML IV SCH ×3 (00:49→15:27)
[2017-09-27] MEDS: METOPROLOL TARTRATE 25 MG TABLET PO SCH (06:25)
[2017-09-27 06:28] VITALS: BP 173/90
[2017-09-27] MEDS: ENALAPRILAT 1.25 MG/ML, 2ML IV PRN (06:33)
[2017-09-27 07:29] VITALS: BP 162/76
[2017-09-27] MEDS: LISINOPRIL 20 MG TABLET PO SCH (07:38)
[2017-09-27] MEDS ORDERED: LISINOPRIL 20 MG TABLET PO SCH (09:00)
[2017-09-27] MEDS ORDERED: AMLODIPINE 5 MG TABLET PO SCH (09:00)
[2017-09-27 12:13] VITALS: BP 144/78
[2017-09-27] MEDS ORDERED: METO25TA35 PO (13:39)
[2017-09-27] MEDS ORDERED: AMLO5TAB2 PO (13:39)
[2017-09-27] MEDS ORDERED: LISI-170 PO (13:39)
[2017-09-27] MEDS ORDERED: POLY17PO5 PO (13:39)
[2017-09-27] MEDS ORDERED: MERO1PIG IV (13:39)
[2017-09-27] MEDS ORDERED: TRAM50TA2 PO (13:39)
[2017-09-27 13:50] VITALS: BP 116/68
== END 2017-09-27 16:57 | DRG 94 ==
LOC: ED 17:26 → EDIP 18:13 → 3NW 19:02
PROVIDERS: ADMIT Family Medicine; ATTEND Family Medicine
PROC: 0T9B70Z Drainage of Bladder with Drainage Device, Via Natural or Artificial Opening (ICD-10-PCS; 2017-09-19)
PROC: 009U3ZX Drainage of Spinal Canal, Percutaneous Approach, Diagnostic (ICD-10-PCS; principal; 2017-09-20)
PROC: B01B1ZZ Fluoroscopy of Spinal Cord using Low Osmolar Contrast (ICD-10-PCS; 2017-09-20)
DX: G00.9 Bacterial meningitis, unspecified (principal); G93.40 Encephalopathy, unspecified; G97.1 Other reaction to spinal and lumbar puncture; I10 Essential (primary) hypertension; R50.9 Fever, unspecified; Z85.46 Personal history of malignant neoplasm of prostate; Z92.3 Personal history of irradiation; Z85.841 Personal history of malignant neoplasm of brain; Z98.890 Other specified postprocedural states; Z79.899 Other long term (current) drug therapy; Z87.891 Personal history of nicotine dependence
CPT/HCPCS: 36415; 62270; 70553; 71045; 80048; 80053; 81001; 82565; 82945; 83605; 84145; 84157; 84520; 85025; 85610; 85651; 85730; 86140; 87040; 87070; 87205; 87252; 87529; 89051; 93005; 99285; A9585; J0696; J1885; J2185; J3370; J3490; J7030; J7050